=== PATIENT | female | born 1955 ===

== ENCOUNTER → 2018-02-24 14:46 | Outpatient (CLI) | payer BC, SELFPAY ==
[2018-02-24 15:53] LABS: HEMOLYSIS < 15 (0-50); Iron 93 ug/dL (37-170)
[2018-02-24 16:04] LABS: Percent Iron Saturation 31 % (15-50); Total Iron Binding Capacity 296 ug/dL (265-497); Transferrin 254 mg/dL (206-381)
[2018-02-24 16:25] LABS: Thyroid Stimulating Hormone 1.88 uIU/mL (0.47-4.68)
== END ==
PROVIDERS: PCP Family Medicine Geriatric Medicine; Visit Provider Obstetrics & Gynecology
DX: L65.9 Nonscarring hair loss, unspecified (principal)
CPT/HCPCS: 36415; 83540; 83550; 84439; 84443

== ENCOUNTER 2018-03-04 10:29 | Day surgery (SDC) | payer BC, SELFPAY ==
--- NOTE | 2018-03-04 08:30 | PM.PREOP ---
Pre-operative Note Interval Note Pre-op Check: Yes History & Physical Reviewed by Physician Changes: No
[2018-03-04] MEDS: PROPARACAINE 0.5% OPHTH SOL 2 DROPS EYE-OP (11:16)
[2018-03-04 11:19] VITALS: BP 135/70; PULSE 63; RESP 16; TEMP 36.1; O2SAT 100
[2018-03-04 11:20] VITALS: BMI 25.3
[2018-03-04] MEDS: CATARACT EYE COMPOUND (10 DROPS/SYRINGE) 3 DROPS EYE-OP (11:36)
[2018-03-04] MEDS: LIDOCAINE 2% 4 ML, BUPIVACAINE 0.5% (PF) 4 ML, HYALURONIDASE 150 UNIT INJ (12:39)
[2018-03-04] MEDS: LIDOCAINE 1% W/EPI INJ 20 ML INJ (12:39)
[2018-03-04] MEDS: CHONDROIDTIN/SOD HYALURONATE 1.05 ML SYRINGE INTRAOCULA (13:07)
[2018-03-04] MEDS: BALANCED SALT IRRIG SOLN NO.2 15 ML IRRIG.SOLN IRR (13:07)
[2018-03-04] MEDS: CARBACHOL 1.5 ML VIAL INJ (13:07)
[2018-03-04] MEDS: MOXIFLOXACIN OPHTH DROPS 3 ML BOTTLE 2 DROPS INJ (13:08)
[2018-03-04] MEDS: NEOMYCIN/POLY/DEX OPHTH OINT 1 APPLIC EYE-RIGHT (13:08)
[2018-03-04] MEDS: OFLOXACIN 0.3% OPHTH 5 ML 2 DROPS EYE-RIGHT (13:08)
[2018-03-04] MEDS: PHENYLEPHRINE/LIDOCAINE VIAL (OR) 0.2 ML EYE-OP (13:09)
[2018-03-04] MEDS: BALANCED SALT IRRIG SOLN NO.2 500 ML, EPINEPHrine 1 MG IRR (13:10)
[2018-03-04] MEDS: TRIAMCINOLONE 50 MG/5 ML VIAL INJ (13:10)
[2018-03-04 13:30] VITALS: BP 118/63; PULSE 53; RESP 24; TEMP 35.7; O2SAT 100
--- NOTE | 2018-03-04 17:36 | P.OP_ITS ---
Operative Date/Time/Diagnoses Date of procedure: 03/04/18 Time of procedure: 12:30 Procedure & Clinicians Procedure: Date of service:03/04/2018 Preoperative diagnoses: 1. Right nuclear sclerotic and cortical cataract. 2. Previous concussion. Postoperative diagnoses: 1. Cataract removed with phacoemulsification with posterior chamber intraocular lens placed. Procedure: Phacoemulsification with posterior chamber intraocular lens implant Surgeon: Mellissa Farnsworth MD Complications:None. Specimen: None Implant:ZCBOO +21.0 Blood loss: None Anesthesia: Retrobulbar with monitored standby Anesthesiologist: Frank Acosta M.D. Description of procedure: Patient is a 63 year old female year old with decreased vision due to cataract which is affecting activities of daily living. She wants surgery to improve vision. She was taken to the operating room and given IV sedation. A retrobulbar block insert consisting of 6 cc of 2% xylocaine without epinephrine mixed half and half with 0.5% Marcaine with 1 cc of hyaluronidase added is placed between the medial and lateral 1/3 of the inferior orbital rim. Lid akinesia is obtain with 1% xylocaine with epinephrine infiltrated along the lid margin. The eye is manually massaged for 30 sec, prepped using Betadine solution, and draped in the usual sterile fashion. Temporal approach was made, a 1 mm side-port incision was made at the 7:30 position. Phenylephrine 1.5% mixed with 1% xylocaine 0.2 cc was placed into the anterior chamber. Viscoat followed by Healon was then placed. A 2.6 mm clear incision with a 2.6 mm blade was placed at the 170 degree meridian. A 360 degree capsulorrhexis style capsulotomy was then performed with a cystitome needle on a Healon. Hydrodelineation and hydrodissection were performed. The phacoemulsification unit is introduced, and sculpting notice used to groove the central lens. It is then removed in chopping mode. Epi nucleus is removed with epinuclear mode and irrigation aspiration was used to remove the peripheral cortex. The posterior capsule is polished. The intraocular lens is selected, inspected, power confirmed, and placed in the posterior chamber. The pupil was constricted. The wound was stromally hydrated and tested for leaks, there was none and it was left sutureless. Vigamox 0.1 cc was placed into the anterior chamber. Arialog 0.2 cc was placed in the superior subconjunctival space. A drop of antibiotic and was placed and the eye was patched and shielded. The patient was stable and returned to the recovery room in excellent condition. Dictated by: Mellissa Farnsworth MD Copy to: [facility]
== END 2018-03-04 13:40 | disposition home or self-care (01) ==
LOC: OR 10:29
PROVIDERS: PCP Family Medicine Geriatric Medicine; Visit Provider Ophthalmology
DX: H25.11 Age-related nuclear cataract, right eye (principal); J45.909 Unspecified asthma, uncomplicated; F41.9 Anxiety disorder, unspecified; R42 Dizziness and giddiness
CPT/HCPCS: J0171; J2250; J2704; J3010; J3301; J3470

== ENCOUNTER 2018-03-11 12:57 | Day surgery (SDC) | payer BC, SELFPAY ==
--- NOTE | 2018-03-11 07:43 | PM.PREOP ---
Pre-operative Note Interval Note Pre-op Check: Yes History & Physical Reviewed by Physician Changes: No
[2018-03-11 14:22] VITALS: BP 102/66; PULSE 57; RESP 16; TEMP 36.6; O2SAT 99; BMI 25.6
[2018-03-11] MEDS: PROPARACAINE 0.5% OPHTH SOL 2 DROPS EYE-OP (14:35)
[2018-03-11] MEDS: CATARACT EYE COMPOUND (10 DROPS/SYRINGE) 3 DROPS EYE-OP (14:35)
[2018-03-11] MEDS: BALANCED SALT IRRIG SOLN NO.2 15 ML IRRIG.SOLN IRR (15:35)
[2018-03-11] MEDS: CARBACHOL 1.5 ML VIAL INJ (15:36)
[2018-03-11] MEDS: HYALURONATE SODIUM 10 MG/ML SYRINGE INJ (15:36)
[2018-03-11] MEDS: CHONDROIDTIN/SOD HYALURONATE 1.05 ML SYRINGE INTRAOCULA (15:36)
[2018-03-11] MEDS: LIDOCAINE 1% W/EPI INJ 20 ML INJ (15:36)
[2018-03-11] MEDS: MOXIFLOXACIN OPHTH DROPS 3 ML BOTTLE 2 DROPS INJ (15:39)
[2018-03-11] MEDS: TRIAMCINOLONE 50 MG/5 ML VIAL INJ (15:40)
[2018-03-11] MEDS: NEOMYCIN/POLY/DEX OPHTH OINT 1 APPLIC EYE-LEFT (15:40)
[2018-03-11] MEDS: OFLOXACIN 0.3% OPHTH 5 ML 2 DROPS EYE-LEFT (15:40)
[2018-03-11] MEDS: PHENYLEPHRINE/LIDOCAINE VIAL (OR) 0.2 ML EYE-OP (15:40)
[2018-03-11] MEDS: BALANCED SALT IRRIG SOLN NO.2 500 ML, EPINEPHrine 1 MG IRR (15:41)
[2018-03-11] MEDS: LIDOCAINE 2% 4 ML, BUPIVACAINE 0.5% (PF) 4 ML, HYALURONIDASE 150 UNIT INJ (15:41)
[2018-03-11 16:02] VITALS: BP 126/76; PULSE 50; RESP 12; TEMP 36.3; O2SAT 100
--- NOTE | 2018-03-11 16:07 | PM.OP.1 ---
Operative Date/Time/Diagnoses Date of procedure: 03/11/18 Time of procedure: 13:07 Procedure & Clinicians Procedure: Date of service:03/11/2018 Preoperative diagnoses: 1. Nuclear scerlotic and cortical Cataract 2. Anxiety Postoperative diagnoses: 1. Cataract removed withphacoemulsification with PC IOL. Procedure: Phacoemulsification with posterior chamber intraocular lens implant Surgeon: Mellissa Farnsworth MD Complications: None Specimen: None Implant:ZCBOO+20.5 Blood loss: None Anesthesia: Retrobulbar with monitored standby Anesthesiologist: Hai Weldon M.D. Description of procedure: Patient is a 63 year old female with decreased vision due to cataract which is affecting activities of daily living. She wants surgery to improve vision. She was taken to the operating room and given IV sedation. A retrobulbar block consisting of 6 cc of 2% xylocaine without epinephrine mixed half and half with 0.5% Marcaine with 1 cc of hyaluronidase added is placed between the medial and lateral 1/3 of the inferior orbital rim. Lid akinesia is obtain with 1% xylocaine with epinephrine infiltrated along the lid margin. The eye is manually massaged for 30 sec, prepped using Betadine solution, and draped in the usual sterile fashion. Temporal approach was made, a 1 mm side-port incision was made at the 12 oclock meridian. Phenylephrine 1.5% mixed with 1% xylocaine 0.2 cc was placed into the anterior chamber. Viscoat followed by Blaise was then placed. A 2.6 mm clear incision with a 2.6 mm blade was placed at the 3 oclock meridian. A 360 degree capsulorrhexis style capsulotomy was then performed with a cystitome needle on a Healon. Hydrodelineation and hydrodissection were performed. The phacoemulsification unit is introduced, and sculpting notice used to groove the central lens. It is then removed in chopping mode. Epi nucleus is removed with epinuclear mode and irrigation aspiration was used to remove the peripheral cortex. The posterior capsule is polished. The intraocular lens is selected, inspected, power confirmed, and placed in the posterior chamber. The pupil [] constricted. The wound was stromally hydrated and tested for leaks, there was none and was left sutureless. Vigamox 0.1 cc was placed into the anterior chamber. Kenalog 0.2 cc was placed in the superior subconjunctival space. A drop of antibiotic and was placed and the eye was patched and shielded. The patient was stable and returned to the recovery room in excellent condition. Dictated by: Mellissa Farnsworth MD Copy to: [facility]
== END 2018-03-11 16:12 | disposition home or self-care (01) ==
PROVIDERS: PCP Family Medicine Geriatric Medicine; Visit Provider Ophthalmology
DX: H25.12 Age-related nuclear cataract, left eye (principal); J45.909 Unspecified asthma, uncomplicated; F41.9 Anxiety disorder, unspecified
CPT/HCPCS: J0171; J2704; J3301; J3470

== ENCOUNTER → 2018-03-12 09:28 | Outpatient (CLI) | payer BC, SELFPAY | PROVIDERS: PCP Family Medicine Geriatric Medicine; Visit Provider Obstetrics & Gynecology | DX: Z13.820 Encounter for screening for osteoporosis (principal); M85.852 Other specified disorders of bone density and structure, left thigh; Z78.0 Asymptomatic menopausal state; L65.9 Nonscarring hair loss, unspecified; Z82.62 Family history of osteoporosis; Z87.891 Personal history of nicotine dependence | CPT/HCPCS: 77080 ==

== ENCOUNTER → 2018-08-10 18:29 | Outpatient (REF) | payer BC, SELFPAY ==
[2018-08-10 19:13] LABS: Add Manual Diff / Slide Review NO; Basophils Absolute Auto 0 /uL (0-100); Basophils Percent Auto 0.3 % (0-2); Eosinophils Absolute Auto 100 /uL (0-450); Eosinophils Percent Auto 1.3 % (2-4); Hematocrit 39.1 % (36-46); Hemoglobin 12.6 g/dL (12.0-16.0); Lymphocytes Absolute Auto 1500 /uL (1100-4500); Lymphocytes Percent Auto 31.6 % (25-40); Mean Corpuscular HGB Conc 32.2 % (30-36); Mean Corpuscular Hemoglobin 32.9 PG (26-34); Monocytes Absolute Auto 400 /uL (0-900); Monocytes Percent Auto 7.6 % (3-14); Neutrophils Absolute Auto 2800 /uL (1500-7000); Neutrophils Percent Auto 59.2 % (50-75); Platelet Count 211 X10^3/uL (150-400); Red Blood Cell Count 3.83 X10^6/uL (4.0-5.2); Red Cell Distribution Width 13.1 % (11.6-14.8); White Blood Cell Count 4.7 X10^3/uL (4.5-11.0)
== END ==
LOC: LAB 18:29
PROVIDERS: PCP Family Medicine Geriatric Medicine; Visit Provider Physician Assistant
DX: R04.0 Epistaxis (principal)
CPT/HCPCS: 36415; 85025

== ENCOUNTER → 2018-08-25 19:26 | Outpatient (REF) | payer BC, SELFPAY ==
[2018-08-25 20:53] LABS: Vitamin B12 564 pg/mL (239-931)
[2018-08-27 16:13] LABS: Rubeola Measles IgG > 300.00 AU/mL (< 25.00)
== END ==
LOC: LAB 19:26
PROVIDERS: PCP Family Medicine Geriatric Medicine; Visit Provider Family Medicine Geriatric Medicine
DX: I10 Essential (primary) hypertension (principal); D72.89 Other specified disorders of white blood cells; R63.5 Abnormal weight gain; D64.9 Anemia, unspecified; R20.2 Paresthesia of skin
CPT/HCPCS: 36415; 82607; 86735; 86762; 86765

== ENCOUNTER → 2018-09-17 09:35 | Outpatient (CLI) | payer BC, SELFPAY ==
--- NOTE | 2018-09-17 | DI.MRI.S_ITS ---
PROCEDURE: MR CERVICAL SPINE WO CON INDICATIONS: Pain in left arm TECHNIQUE: Noncontrast sagittal T1 spin echo and T2 fast spin echo, sagittal STIR, foraminal oblique sagittal T2 fast spin echo, and axial gradient echo or T2 fast spin echo through the cervical spine. COMPARISON: None. FINDINGS: Image quality: Excellent. Alignment and Curvature: There is normal bony alignment. Bone Marrow: Marrow demonstrates normal overall signal. There is bilateral maxillary sinus disease partially visualized. Spinal Cord: Visualized spinal cord has normal size and signal. No cerebellar tonsillar herniation. Paraspinous Soft Tissues: No paravertebral masses. Prevertebral soft tissues are normal in thickness. C2-C3: Normal appearance. C3-C4: Normal appearance. C4-C5: Normal appearance. C5-C6: Normal appearance. C6-C7: No central canal narrowing. Bilateral facet arthropathy. Mild bilateral foraminal stenoses. C7-T1: No central canal narrowing. No definite right foraminal stenosis. Mild left foraminal narrowing. The remaining lower visualized upper thoracic neuroforamen appear widely patent. IMPRESSION: Mild bilateral C6-C7 and left C7-T1 foraminal narrowing. No high-grade canal stenosis. Mild bilateral maxillary sinus disease, only partially visualized. Dictated by: Jules Angelo M.D. on 09/17/2018 at 12:09 Approved by: Jules Angelo M.D. on 09/17/2018 at 12:23
== END ==
PROVIDERS: Family Provider Ophthalmology; PCP Family Medicine Geriatric Medicine; Referring Provider Internal Medicine Rheumatology; Visit Provider Psychiatry & Neurology Neurology
DX: M79.602 Pain in left arm (principal); M48.02 Spinal stenosis, cervical region; J32.0 Chronic maxillary sinusitis
CPT/HCPCS: 72141

== ENCOUNTER → 2019-02-09 08:52 | Outpatient (CLI) | payer MEDICARE, BC, SELFPAY ==
--- NOTE | 2019-02-09 | DI.MG.S_ITS ---
BILATERAL DIGITAL SCREENING MAMMOGRAM 3D/2D WITH CAD: 02/09/2019 CLINICAL: Routine screening. Comparison is made to exams dated: 01/27/2018 mammogram, 01/14/2017 mammogram, and 01/09/2016 mammogram - [facility]. The tissue of both breasts is heterogeneously dense. This may lower the sensitivity of mammography. Current study was also evaluated with a Computer Aided Detection (CAD) system. No significant masses, calcifications, or other findings are seen in either breast. There has been no significant interval change. IMPRESSION: NEGATIVE There is no mammographic evidence of malignancy. A 1 year screening mammogram is recommended. This exam was interpreted at Station ID: [id number]. NOTE: For mammograms, a report in lay terms will be sent to the patient. Approximately 15% of breast malignancies will not be visualized mammographically. In the management of a palpable breast mass, a negative mammogram must not discourage biopsy of a clinically suspicious lesion. Electronically Signed By: Bautista montes/bonilla:02/09/2019 10:26:34 copy to: [facility] FLAHERTY letter sent: Normal Exam ACR BI-RADS Category 1: Negative [id number]
== END ==
PROVIDERS: Family Provider Ophthalmology; PCP Internal Medicine; Visit Provider Obstetrics & Gynecology
DX: Z12.31 Encounter for screening mammogram for malignant neoplasm of breast (principal)
CPT/HCPCS: 77063; 77067

== ENCOUNTER 2019-05-13 07:56 | Day surgery (SDC) | payer MEDICARE, BC, SELFPAY ==
[2019-05-13] VITALS (11 sets, daily range): BP systolic 84–136; BP diastolic 50–82; PULSE 51–67; RESP 6–19; TEMP 35.9–36.2; O2SAT 93–99; BMI 25.6
--- NOTE | 2019-05-13 08:51 | PM.HP.1 ---
History of Present Illness History of Present Illness Date Patient Seen: 05/13/19 Time Patient Seen: 08:52 Chief complaint: [id number] SCREENING COLONOSCOPY Narrative: Patient is a woman here for screening colonoscopy. Last exam was 5 years ago. Patient History Medical History Abnormal Pap smear of cervix (Resolved 1979) Achilles tendonitis (Chronic 2005) Acne (Resolved ~1969) Anxiety (Chronic) Asthma (Chronic 1983) BPPV (benign paroxysmal positional vertigo) (Chronic 2012) Cervical cancer (Resolved 1979) Chicken pox (Resolved 1961) Depression (Chronic 2009) Fibroids (Resolved 2003) Foot pain (Chronic 2005) Gastroenteritis (Resolved 2009) Herpes (Chronic 1978) Lateral epicondylitis, right elbow (Chronic 2008) Rosacea (Chronic 2002) Surgical History Anesthesia complication (Resolved) History of cervical polypectomy (Resolved 2004) History of third molar tooth extraction (Resolved 1969) History of tonsillectomy (Resolved 1966) Status post breast lumpectomy (Resolved 1999) Status post laparoscopic supracervical hysterectomy (Resolved 2003) Family & Social History Family History Mother Diabetes mellitus Heart disease Hypertension High cholesterol Mental health problem Social History: household members spouse Tobacco & Substance use: Smoking Status Never smoker Meds Home Medications and Allergies Home Medications Medication Instructions Recorded Confirmed Type conjugated estrogens 0.3 mg tablet 0.3 mg PO QDAY #90 tab 04/02/19 05/13/19 Rx Allergies Allergy/AdvReac Type Severity Reaction Status Date / Time rofecoxib [ROFECOXIB] Allergy Severe Swelling Verified 05/13/19 08:45 of the Eye codeine [CODEINE] Allergy Mild Verified 05/13/19 08:45 gabapentin AdvReac Mild Short term Verified 05/13/19 08:45 memory loss Review of Systems Review of Systems ROS Unobtainable: All systems reviewed & are unremarkable except as noted in HPI and below Exam Vital Signs (past 8 hours): - 05/13/19 08:36 Temperature 97.2 F L Pulse Rate 60 Respiratory Rate 16 Blood Pressure 136/82 Pulse Oximetry 99 Narrative Exam Narrative: Pleasant cooperative patient no apparent distress. Lungs are clear to auscultation. No rales or rhonchi. Heart regular rate and rhythm no murmur gallop. Abdomen is soft nontender without mass. No obvious hernias. Patient is alert and oriented x3. Assessment & Plan Assessment & Plan narrative: The patient for a screening colonoscopy. I have discussed the procedure with them. Risks of bleeding, perforation which would necessitate major operation, failure to find remove all lesions, the potential tattoo were all discussed. All questions were answered. They wished to proceed.
[2019-05-13] MEDS: ONDANSETRON 4 MG/2 ML INJ IV (08:55)
[2019-05-13] MEDS: SODIUM CHLORIDE 0.9% 1,000 ML 200 ML IV ×2 (08:56→09:42)
--- NOTE | 2019-05-13 08:56 | PM.PREOP ---
Pre-operative Note Interval Note History & Physical reviewed/Exam performed by Physician: Yes Changes to H&P: No ASA Class (for procedural sedation): I
[2019-05-13] MEDS: fentaNYL 250 MCG/5 ML INJ IV (09:21)
[2019-05-13] MEDS: MIDAZOLAM 5 MG/5 ML VIAL IV (09:22)
--- NOTE | 2019-05-13 09:25 | PM.OP.ENDO ---
Operative Date/Time/Diagnoses Date of procedure: 05/13/19 Time of procedure: 09:25 Pre-op diagnosis: Screening examination Post-op diagnosis: same Procedure & Clinicians Study performed: Colonoscopy Same procedure as scheduled: Yes Indications: Screening. Last exam 5 years ago. Surgeon: Sathish Moser Procedure Notes SCOAP/Timeout: Performed Procedure in detail: The patient was placed in the left lateral decubitus position and underwent IV sedation directed by the surgeon consisting of fentanyl and Versed. Digital exam was unremarkable. The scope was inserted and advanced through the rectum into the sigmoid, descending, transverse, and ascending colon. No lesions were seen. The cecum was reached identified by the ileocecal valve and the appendiceal opening. The ileocecal valve was successfully cannulated. The terminal ileum was normal in appearance. The scope was gradually brought out. No Polyps were found. The scope ultimately was retroflexed in the rectum. The appearance was remarkable for internal hemorrhoids near the anal verge. No ulcerations seen.. The scope was removed and the patient tolerated the procedure well. Prep was excellent. Scope withdrawal time: 5-1/2 minutes Sedation minutes: 20 Findings: internal hemorrhoids Specimen(s): none sent Complications: none Impression: Normal exam except for hemorrhoids Post-procedure Recommendations: Colonscopy in 10 years Follow up: as needed Disposition: PACU
--- NOTE | 2019-05-13 11:08 | SUR.PHASEII ---
Pt held due to excessive sleepiness
--- NOTE | 2019-05-13 11:14 | SUR.PHASEII ---
pt awake, assisting with dressing, VS stable, DC to ED entrance via [facility]
== END 2019-05-13 11:18 | disposition home or self-care (01) ==
PROVIDERS: Family Provider Ophthalmology; PCP Internal Medicine; Visit Provider Specialist
PROC: 0DJD8ZZ Inspection of Lower Intestinal Tract, Via Natural or Artificial Opening Endoscopic (ICD-10-PCS; CPT 45378; principal; 2019-05-13 08:45)
DX: Z12.11 Encounter for screening for malignant neoplasm of colon (principal); K64.8 Other hemorrhoids
CPT/HCPCS: G0121; 99152; J2250; J2405; J3010

== ENCOUNTER 2024-10-08 11:51 | Emergency (ER) | payer MEDICARE, SELFPAY ==
[2024-10-08 12:01] VITALS: BP 186/86; PULSE 70; RESP 13; TEMP 36.6; O2SAT 97; BMI 26.2
--- NOTE | 2024-10-08 12:15 | DI.US.S_ITS ---
PROCEDURE: US PERIPH VENOUS LOW EXTREM LT INDICATIONS: LATERAL LEG PAIN THIGH-CALF. TECHNIQUE: Real-time imaging, as well as color and pulse Doppler interrogation, were performed of the lower extremity deep veins from the inguinal ligament to the popliteal fossa, with documentation of the visualized calf veins. COMPARISON: None. FINDINGS: The common femoral, femoral, popliteal, and the visualized calf veins are normally compressible, and free of intraluminal thrombus. Color and pulse Doppler demonstrate normal phasic intraluminal flow. There is normal augmentation response to distal compression maneuver. At the area of pain, there is a mildly hyperechoic appearing area, without abnormal vascularity, that measures 2.4 x 1.7 x 0.6 cm. IMPRESSION: No findings of lower extremity deep venous thrombosis. Likely hematoma seen at the site of clinical concern. Note: Concordant preliminary findings given by the alberene stone setter upon the completion of the examination to Dr. Rosenthal. Dictated by: Navjot Venegas M.D. on 10/08/2024 at 12:34 Approved by: Navjot Venegas M.D. on 10/08/2024 at 12:35
--- NOTE | 2024-10-08 12:17 | ED.EXTPRO ---
HPI - Extremity Problem <Marielos Rosenthal PA-C - Last Filed: 10/08/24 14:35> General Chief complaint: Extremity Problem,Nontraumatic Stated complaint: L knee pain Time Seen by Provider: 10/08/24 12:15 Source: patient Mode of arrival: Ambulatory History of Present Illness HPI Narrative: Ms. Gibson is a pleasant 69-year-old female with a past medical history of hypertension, asthma, anemia, osteopenia who presents to the emergency department for left knee pain x 5 days, was seen at [facility] ER yesterday and advised to get an ultrasound. Patient reports on Friday she was on both of her knees gardening for about 7 hours. Friday evening she was woken up and then all of the night with severe left lateral knee pain. She denied any direct trauma or injury to the knee earlier in the day. Denies a history of left knee problems. States that the lateral left knee pain has persisted and is occasionally spreading down the calf and up the thigh. Pain is worse when lying flat with a straight leg or when sitting, improves with standing and walking. She went to the emergency department yesterday and have an x-ray which revealed ?no acute fracture or dislocation. Soft tissues unremarkable. No joint effusion.She was diagnosed with a left knee strain and prescribed [place]. She states that she was advised to come to this emergency department for an ultrasound as I do not have ultrasound available at that ER for DVT rule out. She had a negative D-dimer test performed. She denies fevers, chills, flu-like symptoms, redness, obvious swelling, numbness tingling or weakness. She took 2 acetaminophen tablets prior to arrival. Related Data Previous Rx's Medication Instructions Recorded acyclovir 5 % topical ointment 1 applic topical SEE INSTRUCTIONS 11/30/12 (Zovirax) HSV #15 grams valacyclovir 500 mg tablet 500 mg PO BID #30 tabs 02/04/22 (Valtrex) conjugated estrogens 0.3 mg tablet 0.3 mg PO DAILY #90 tabs 05/05/23 (Premarin) Allergies Allergy/AdvReac Type Severity Reaction Status Date / Time rofecoxib [ROFECOXIB] Allergy Severe Swelling Verified 05/21/21 09:07 of the Eye codeine [CODEINE] Allergy Mild Verified 05/21/21 09:07 gabapentin AdvReac Mild Short term Verified 05/21/21 09:07 memory loss Review of Systems <Marielos Rosenthal PA-C - Last Filed: 10/08/24 14:35> Review of Systems ROS Unobtainable: All systems reviewed & are unremarkable except as noted in HPI and below Patient History <Marielos Rosenthal PA-C - Last Filed: 10/08/24 14:35> Medical History (Updated 10/08/24 @ 14:06 by Marielos Rosenthal PA-C) BPPV (benign paroxysmal positional vertigo) (2012) Lateral epicondylitis, right elbow (2008) Abnormal Pap smear of cervix (1979) Fibroids (2003) Herpes (1978) Chicken pox (1961) Acne (~1969) Rosacea (2002) Foot pain (2005) Anxiety Depression (2009) Asthma (1983) Achilles tendonitis (2005) Gastroenteritis (2009) Cervical cancer (1979) Surgical History Anesthesia complication History of cervical polypectomy (2004) Status post breast lumpectomy (1999) History of third molar tooth extraction (1969) History of tonsillectomy (1966) Status post laparoscopic supracervical hysterectomy (2003) Family History Mother Diabetes mellitus Heart disease Hypertension High cholesterol Mental health problem Social History household members: spouse Smoking Status: Never smoker Smoking Status: Never smoker Exam <Marielos Rosenthal PA-C - Last Filed: 10/08/24 14:35> Narrative Exam Narrative: GENERAL: 69 year old patient appears stated age. Well-developed patient, in no acute distress. HEAD: Atraumatic. Normocephalic. EYES: No scleral icterus. No injection or drainage. CARDIOVASCULAR: Regular rate RESPIRATORY: ?Nonlabored respirations. ?Speaking in clear, full sentences.? EXTREMITIES: TTP lateral left knee around proximal fibula, full range of motion but with discomfort and no reproducible joint laxity. There is no erythema, swelling or increased warmth. Subjective pain radiates down the back of the calf and up the back of the thigh. No tenderness to palpation of left russell, thigh. Strong DP and PT pulses bilaterally and brisk capillary refill of the toes. NEURO: AOx3. ?Clear speech. ?Moves all 4 extremities appropriately. Sensation intact to light touch on bilateral plantar and dorsal feet. SKIN: No rash or erythema of visible areas. Initial Vital Signs Initial Vital Signs: Vital Signs Temperature 97.8 F 10/08/24 12:01 Pulse Rate 70 10/08/24 12:01 Respiratory Rate 13 10/08/24 12:01 Blood Pressure 186/86 H 10/08/24 12:01 Pulse Oximetry 97 10/08/24 12:01 Oxygen Delivery Method Room Air 10/08/24 12:01 <Talya Wiggins DO - Last Filed: 10/09/24 08:21> Initial Vital Signs Initial Vital Signs: Vital Signs Temperature 97.8 F 10/08/24 12:01 Pulse Rate 70 10/08/24 12:01 Respiratory Rate 13 10/08/24 12:01 Blood Pressure 186/86 H 10/08/24 12:01 Pulse Oximetry 97 10/08/24 12:01 Oxygen Delivery Method Room Air 10/08/24 12:01 Course <Marielos Rosenthal PA-C - Last Filed: 10/08/24 14:35> Orders Ordered: Discontinued Medications Ketorolac Tromethamine (Ketorolac 30 Mg/Ml Vial) 30 mg IM NOW ONE Stop: 10/08/24 12:16 Last Admin: 10/08/24 13:28 Dose: 30 mg Documented By: ROSETTA Vital Signs Vital signs: Vital Signs - 8 hr 10/08/24 12:01 10/08/24 14:16 Temperature 97.8 F Pulse Rate 70 68 Respiratory Rate 13 15 Blood Pressure 186/86 H 175/81 H Pulse Oximetry 97 98 Oxygen Delivery Method Room Air Room Air <Talya Wiggins DO - Last Filed: 10/09/24 08:21> Orders Ordered: Discontinued Medications Ketorolac Tromethamine (Ketorolac 30 Mg/Ml Vial) 30 mg IM NOW ONE Stop: 10/08/24 12:16 Last Admin: 10/08/24 13:28 Dose: 30 mg Documented By: ROSETTA Vital Signs Vital signs: Vital Signs - 8 hr 10/08/24 12:01 10/08/24 14:16 Temperature 97.8 F Pulse Rate 70 68 Respiratory Rate 13 15 Blood Pressure 186/86 H 175/81 H Pulse Oximetry 97 98 Oxygen Delivery Method Room Air Room Air MDM - Extremity (Nontraumatic) <Marielos Rosenthal PA-C - Last Filed: 10/08/24 14:35> Medical Records Attestation: I reviewed the patient's medical records. Medical records narrative: Reviewed emergency department records on patient's cellphone from yesterday which revealed negative D-dimer less than 100, left knee x-ray revealing no acute fracture or dislocation, soft tissues unremarkable, no joint effusion. Physician at that time documented suspicion for left knee strain versus Nunez cyst. She was prescribed starter pack of hydrocodone-acetaminophen. Imaging Data LLE Venous US: Radiologist's Impression: PROCEDURE: US PERIPH VENOUS LOW EXTREM LT INDICATIONS: LATERAL LEG PAIN THIGH-CALF. TECHNIQUE: Real-time imaging, as well as color and pulse Doppler interrogation, were performed of the lower extremity deep veins from the inguinal ligament to the popliteal fossa, with documentation of the visualized calf veins. COMPARISON: None. FINDINGS: The common femoral, femoral, popliteal, and the visualized calf veins are normally compressible, and free of intraluminal thrombus. Color and pulse Doppler demonstrate normal phasic intraluminal flow. There is normal augmentation response to distal compression maneuver. At the area of pain, there is a mildly hyperechoic appearing area, without abnormal vascularity, that measures 2.4 x 1.7 x 0.6 cm. IMPRESSION: No findings of lower extremity deep venous thrombosis. Likely hematoma seen at the site of clinical concern. MDM Narrative Medical decision making narrative: 69-year-old female with a past medical history of hypertension, asthma, anemia, osteopenia who presents to the emergency department for left knee pain x 5 days, was seen at [facility] ER yesterday and advised to get an ultrasound. Differential diagnosis includes but is not limited to left knee sprain, strain, iliotibial band syndrome, meniscus tear, osteoarthritis, DVT, Nunez cyst, etc. No fever, tachycardia, redness, swelling or warmth concerning for septic joint. On exam patient is in no acute distress, nontoxic appearing, vital signs within normal limits except for mildly elevated blood pressure. She is tenderness to palpation of the lateral left knee with no skin changes or deformities. Pain subjectively travels down the left calf and up the back of the left thigh. She was previously seen in the emergency department yesterday, had a negative x-ray, reports that she was advised to come here for ultrasound. She did have a negative D-dimer. We will proceed with left lower extremity venous ultrasound, treat with Toradol. Ultrasound reveals no findings of lower extremity deep venous thrombosis. There is likely hematoma seen at the site of clinical concern. These findings were printed and discussed with the patient. Symptoms are consistent with hematoma, possibly result of left knee muscle or soft tissue injury. No signs of infection at this time. Recommended rice therapy, ibuprofen and acetaminophen, follow up with PCP/Orthopedics. We discussed strict ED return precautions. Patient verbalized understanding of all information is agreeable to plan. She has previously been prescribed hydrocodone-acetaminophen if needed for severe pain. She is ambulatory and stable for discharge home. Discharge Plan Departure Patient Disposition: Home Clinical Impression: Left lateral knee pain, Hematoma Instructions: DI for Hematoma (Bruise), DI for Knee Pain Activity Restrictions/Additional Instructions: Dear Arthur, Thank you for coming to the emergency department. Today you were treated with an injection of anti-inflammatory medication called ketorolac. You also had an ultrasound of your left lower leg performed which revealed no blood clot but it did reveal what appears to be a hematoma which is a collection of blood. At this time I am concerned you potentially have an injury of some of the soft tissues of your left knee. Please follow the recommendations below, and follow up with the primary care doctor and an orthopedic doctor for further management. Please return to the emergency department if you develop any new or worsening symptoms, redness increased warmth or signs of infections, or any other concerns. Please use RICE therapy for your pain in addition to ibuprofen/acetaminophen. Rest the painful area. Ice the area of pain/swelling for at least 15 minutes, 4x a day. Compress the area of swelling using a brace, wrap, or splint if applied. Elevate the painful or swollen extremity by supporting it above the level of the heart with pillows when sitting or laying. Please take Ibuprofen (Motrin/Advil) or Acetaminophen (Tylenol) for pain. These are available over the counter. You may take Ibuprofen 600 mg every 8 hours with food for pain. You may also take Acetaminophen 650 mg every 4-6 hours for pain. Do not exceed 3000 mg of Tylenol a day as this can cause liver damage. Do not drink alcohol with either of these medications. Please call to schedule an appointment with [facility] for further management of your left knee pain. Please follow up with your primary care doctor within the next 2-3 days for ER follow-up. (If you do not have a PCP you can call [phone]. ?to schedule an appointment with an [facility] Primary Care Provider) IF YOU DEVELOP ANY NEW OR WORSENING SYMPTOMS, RETURN TO THE ER! Please read the attached instructions, they highlight more specific treatments and interventions for you at home. Thank you for letting me participate in your care, Marielos Rosenthal PA-C Prescriptions: No Action acyclovir [Zovirax] 5 % ointment 1 applic Topical SEE INSTRUCTIONS Qty: 15 6RF Rx Instructions: apply a small amount to area for outbreaks valacyclovir [Valtrex] 500 mg tablet 500 mg PO BID Qty: 30 1RF Premarin 0.3 mg tablet 0.3 mg PO DAILY Qty: 90 3RF Referrals: Gaviota Stallings MD [Primary Care Provider] - Stand Alone Forms: Patient Portal/API/Survey ED Sign-out <Talya Wiggins DO - Last Filed: 10/09/24 08:21> Cosign ED Attending Cosgabrielaature Attestation: I was available for consultation.
[2024-10-08] MEDS: KETOROLAC 30 MG/ML VIAL IM (13:28)
[2024-10-08 14:16] VITALS: BP 175/81; PULSE 68; RESP 15; O2SAT 98
== END 2024-10-08 14:15 | disposition home or self-care (01) ==
PROVIDERS: Emergency Provider Physician Assistant; Family Provider Ophthalmology; PCP Student in an Organized Health Care Education/Training Program
DX: S80.02XA Contusion of left knee, initial encounter (principal); M25.562 Pain in left knee; X58.XXXA Exposure to other specified factors, initial encounter
CPT/HCPCS: 93971; 96372; 99283; 99284; J1885